=== PATIENT | female | born 1935 | race Caucasian/White ===

== ENCOUNTER → 2019-05-04 12:50 | Outpatient (BNVA) | payer MEDICARE, BC, SELFPAY | PROVIDERS: Visit Provider Internal Medicine | DX: R41.0 Disorientation, unspecified (principal) | CPT/HCPCS: 80048; 81001; 81003; 85025 ==

== ENCOUNTER → 2019-05-13 10:59 | Outpatient (BNVA) | payer MEDICARE, BC, SELFPAY | PROVIDERS: Visit Provider Internal Medicine | DX: R41.0 Disorientation, unspecified (principal) | CPT/HCPCS: 81001 ==